=== PATIENT | male | born 1990 | race African-American/Black ===

== ENCOUNTER 2017-03-07 00:56 | Emergency (ER) ==
[2017-03-07 01:10] VITALS: BP 116/75; TEMP 98.3; BMI 23.6
[2017-03-07] MEDS ORDERED: LIDOCAINE 1 % AMP 5 ML (SUTURES) IM STA (01:27)
[2017-03-07] MEDS ORDERED: ROCEPHIN IM STA (01:27)
[2017-03-07 01:29] LABS: BILIRUBIN,URINE Negative (NEGATIVE); KETONES,URINE Trace (NEGATIVE); LEUKOCYTE ESTERASE ,URINE 1+ (NEGATIVE); NITRITE,URINE Negative (NEGATIVE); PROTEIN,URINE Trace (NEGATIVE); URINE, BLOOD Trace-intact (NEGATIVE)
--- NOTE | 2017-03-07 01:30 | ED.PDOC ---
General ED Provider: Dr. JOSE WISE-ER Chief Complaint: Penile Problem Stated Complaint: my gf had tx for chylmdia 2 weeks ago--i got checked but they didnt tx me--i am having burning when i pee Time Seen by Physician: 01:28 Mode of Arrival: Walk-In Information Source: Patient Exam Limitations: No limitations Nursing and Triage Documentation Reviewed and Agree: Yes Complaint Exam - STD Male Complaint/Exam Onset/Duration: 4 dasyu Symptoms Are: Still present Timing: Intermittent Initial Severity: Mild Current Severity: Mild Location: Reports: Penis Character: Recent STD exposure Aggravating: Reports: None Alleviating: Reports: None Associated Signs and Symptoms: Reports: Dysuria. Denies: Penile sores, Scrotal pain, Scrotal swelling, Testicular pain, Testicular swelling Related Surgical History: Reports: None Genitalia Exam: Present: Normal findings Rectal Exam: Present: Normal Findings Prostate Exam: Nontender Differential Diagnoses: Urethritis Review of Systems - Review Of Systems Constitutional: Reports: No symptoms Eyes: Reports: No symptoms Ears, Nose, Mouth, Throat: Reports: No symptoms Respiratory: Reports: No symptoms Cardiac: Reports: No symptoms GI: Reports: No symptoms : Reports: Dysuria. Denies: Discharge Musculoskeletal: Reports: No symptoms Skin: Reports: No symptoms Neurological: Reports: No symptoms Endocrine: Reports: No symptoms Hematologic/Lymphatic: Reports: No symptoms All Other Systems: Reviewed and Negative Past Medical History - Past Medical History Previously Healthy: Yes Endocrine: Reports: Unknown Cardiovascular: Reports: Unknown Respiratory: Reports: Unknown Hematological: Reports: Unknown Gastrointestinal: Reports: Unknown Genitourinary: Reports: Unknown Neuro/Psych: Reports: Unknown Musculoskeletal: Reports: Unknown Cancer: Reports: Unknown - Surgical History General Surgical History: Reports: Unknown - Family History Family History: Reports: Unknown - Social History Smoking Status: Current every day smoker, Heavy tobacco smoker Hx Substance Use: No Alcohol Screening: Occasionally - Immunizations Tetanus Shot up to Date: (UNKNOWN) Physical Exam - Physical Exam Appearance: Well-appearing, No pain distress, Well-nourished Eyes: KIRK, EOMI, Conjunctiva clear ENT: Ears normal, Nose normal, Oropharynx normal Neck: Supple Respiratory: Airway patent, Breath sounds clear, Breath sounds equal, Respirations nonlabored Cardiovascular: RRR, Pulses normal, No rub, No murmur GI/: Soft, Nontender, No masses, Bowel sounds normal, No Organomegaly Musculoskeletal: Normal strength, ROM intact, No edema, No calf tenderness Skin: Warm, Dry, Normal color Neurological: Sensation intact Psychiatric: Affect appropriate, Mood appropriate Critical Care Note - Critical Care Note Total Time (mins): 0 Course - Course Orders, Labs, Meds: Orders Category Date Time Status Bladder Scan [ED BLADDER SCAN] .ONCE EMERGENCY 03/07/17 01:19 Active URINALYSIS C & S IF INDICATED Stat LAB 03/07/17 01:25 Ordered URINE CULTURE Stat LAB 03/07/17 01:25 Ordered Ceftriaxone Sodium [Rocephin] MEDS 03/07/17 01:27 Stat 250 mg IM ONCE STA Lidocaine HCl/Pf [Lidocaine 1 % Amp 5 ml (Sutures)] MEDS 03/07/17 01:27 Stat 0.9 ml IM ONCE STA Vital Signs: Temp Pulse Resp BP Pulse Ox 03/07/17 00:57 98.3 F 66 18 116/75 99 Departure - Departure Time of Disposition: 01:30 Disposition: HOME SELF-CARE Discharge Problem: Urethritis Instructions: Nonspecific Urethritis in Men (ED) Condition: Good Pt referred to PMD for follow-up: Yes Additional Instructions: doxycycline 100mg bid x 10 days--f/u with pcp next week Allergies/Adverse Reactions: Allergies No Known Drug Allergies Adverse Reaction (Verified 03/07/17 01:08) Home Medications: Ambulatory Orders 1 [No Reported Medications] 03/07/17 Disposition Discussed With: Patient
[2017-03-07 01:34] LABS: ADD URINE MICROSCOPIC YES
[2017-03-07 01:35] LABS: SPERM,URINE 1+ (NOT PRESENT)
== END 2017-03-07 02:08 | disposition home or self-care (01) ==
LOC: ED 00:56
DX: N28.89 Other specified disorders of kidney and ureter (principal); Z20.2 Contact with and (suspected) exposure to infections with a predominantly sexual mode of transmission; F17.210 Nicotine dependence, cigarettes, uncomplicated
CPT/HCPCS: 81001; 87086; 96372; 99283

== ENCOUNTER 2017-03-24 09:27 | Outpatient (CLI) ==
[2017-03-24 09:48] LABS: ADD URINE MICROSCOPIC NO; BILIRUBIN,URINE Negative (NEGATIVE); KETONES,URINE Negative (NEGATIVE); LEUKOCYTE ESTERASE ,URINE Negative (NEGATIVE); NITRITE,URINE Negative (NEGATIVE); PROTEIN,URINE Negative (NEGATIVE); URINE, BLOOD Negative (NEGATIVE)
== END 2017-03-24 09:28 | disposition home or self-care (01) ==
LOC: LAB 09:27
PROVIDERS: ATTEND Nurse Practitioner Family
DX: Z20.2 Contact with and (suspected) exposure to infections with a predominantly sexual mode of transmission (principal)
CPT/HCPCS: 81001; 87800